=== PATIENT | female | born 1990 | race Two or more races ===

== ENCOUNTER 2021-04-28 10:21 | Emergency (ER) | payer OTHER ==
[~2021-04-28] VITALS: Ht 170.2 cm; Wt 90.7 kg
== END 2021-04-28 11:05 | disposition home or self-care (01) ==
LOC: ER 10:21
DX: S61.240A Puncture wound with foreign body of right index finger without damage to nail, initial encounter (principal); W46.0XXA Contact with hypodermic needle, initial encounter; Y93.89 Activity, other specified; Y92.69 Other specified industrial and construction area as the place of occurrence of the external cause; Y99.8 Other external cause status

== ENCOUNTER 2021-12-24 02:00 | Outpatient (CLI) | payer OTHER | END 2021-12-24 02:30 | disposition home or self-care (01) | LOC: PPH VACUNA 02:00 | PROVIDERS: ATTEND Emergency Medicine Pediatric Emergency Medicine | DX: Z23 Encounter for immunization (principal) ==